=== PATIENT | male | born 1975 | race African-American/Black ===

== ENCOUNTER 2023-05-26 12:47 | Outpatient (OUT) | payer OTHER, SELFPAY ==
--- NOTE | 2023-05-26 12:49 | VEIN_ITS ---
Patient: CLIFF LEDBETTER Exam Date: 05/26/2023 : 1975 Gender:M Ordering : Non-Staff Physician Admission #: [id number] Family : Order #: [id number] CLICK HERE TO VIEW EXAM RADIOLOGY REPORT PROCEDURE: FACILITY [facility] - OFFICE VISIT INITIAL COMPARISON: None. PROGRESS NOTES: [age] year old male who presents with a 3 year history of leg swelling, a dilated veins, muscle cramping, and recent bilateral wounds. The patient's leg symptoms are symmetric bilaterally. There has been a progression of symptoms over time. This increases with prolonged standing which patient does for his job. The patient describes an improvement with rest, compression stockings, and leg elevation. The patient denies any signs and symptoms to suggest arterial ischemia. The patient describes a family history varicose veins on maternal side. The patient has drinking and smoking history of occasional alcohol consumption and daily smoker. Patient has a past medical history significant for of heart disease, edema, diabetes mellitus type 2. The patient denies a history of deep venous thrombus or pulmonary embolus. See separate history and physical for medication list. No prior treatment for varicose or spider veins. Current use of compression stockings. After review of nurse notes, history and physical exam I discussed at length the pathophysiology of venous hypertension and possible treatments, therapies and strategies available. We discussed at length the importance of elevating the lower extremities above the level of the heart, increased physical activity and compression stocking use. Ultrasound venous reflux study performed today was discussed at length with the patient. The report demonstrates abnormally dilated and incompetent right great saphenous, small saphenous, left proximal great saphenous, left anterior accessory saphenous veins, and calf private [employer] associate vein adjacent skin surface wound. Dilated branch saphenous varicosities bilaterally.. PHYSICAL EXAM: The right leg demonstrates a few varicosities, no appreciable spider veins, healed ulceration, moderate edema, no appreciable skin discoloration. The left leg demonstrates a few varicosities, no appreciable spider veins, healing ulceration, moderate edema, no appreciable skin discoloration. Both thighs, legs and feet were symmetrically warm to the touch. Good posterior tibial and dorsalis pedis pulses were present bilaterally. VEIN/VC Facility NEW Comprehensive IMPRESSION: 1. Bilateral lower extremity venous insufficiency 2. Bilateral lower extremity varicose veins 3. Moderate bilateral lower extremity subcutaneous edema 4. No flow significant arterial disease 5. CEAP: C5, EC, AP, LA PLAN: 1. Continued use of compression stockings 2. Elevated legs and increased physical activity symptomatic relief 3. Endovenous laser ablation of left anterior accessory saphenous vein, right great saphenous vein, left calf private equity associate vein, proximal left great saphenous vein. 4. Microfoam chemical ablation of branch saphenous varicosities if this will be approved by insurance. Nurse notes, history and physical were reviewed and confirmed, see attached forms. The nurse was present throughout the physical exam and consultation Dictated by: Reese Milian M.D. on 05/26/2023 at 14:02 Approved by: Reese Milian M.D. on 05/26/2023 at 14:39
--- NOTE | 2023-05-26 12:49 | VEIN_ITS ---
Patient: CLIFF LEDBETTER Exam Date: 05/26/2023 : 1975 Gender:M Ordering : Non-Staff Physician Admission #: [id number] Family : Order #: [id number] CLICK HERE TO VIEW EXAM RADIOLOGY REPORT PROCEDURE: VC EXT VENOUS REFLUX EDWINA LMTD COMPARISON: None. INDICATIONS: I83.813 Pain due to varicose veins of bilateral legs TECHNIQUE: Duplex imaging of the lower extremity to assess the deep and superficial venous system for the presence of deep or superficial venous incompetence and to document the location and severity of disease. The study includes evaluation of the great saphenous vein (GSV), anterior accessory saphenous vein (AASV) and small saphenous vein (SSV). Patient scanned in reverse Trendelenburg and standing. FINDINGS: RIGHT LOWER EXTREMITY: Saphenofemoral Junction Reflux: Yes 9.7mm 2.7 sec GSV: Diam (mm) Reflux/ Time (sec) Proximal Thigh 7.7 Yes 2.0 Mid Thigh 5.7 Yes 1.6 Distal Thigh 5.0 Yes 1.6 Prox Calf 4.9 Yes 0.8 Mid Calf 4.0 No Saphenopopliteal Junction Reflux: 5.6mm Yes 1.4 SSV: Proximal Calf 5.5 Yes 1.0 Mid Calf 3.7 Yes 0.9 AASV: Proximal Thigh 5.3 Yes 0.9 Mid Thigh Distal Thigh Thrombi: No acute or chronic thrombus visualized Compressibility: Normal Flow: Normal Preforator: Dist/med calf 3.7mm with 0s reflux. Dist/med calf 3.9mm with 0s reflux. Prox/med 3.7mm with 0.8s reflux. Tech Note: Incompetent SFJ, GSV, SPJ, and SSV. Patent varicose vein dist/med calf 2.4mm with 0.9s reflux. Patent varicose vein dist/med thigh 2.6mm with 0.9s reflux. LEFT LOWER EXTREMITY: Saphenofemoral Junction Reflux: Yes 11.3 mm 1.8 sec GSV: Diam (mm) Reflux/Time (sec) Proximal Thigh 6.8 Yes 1.1 Mid Thigh 5.4 Yes 0.9 Distal Thigh 4.4 No Prox Calf 3.8 No Mid Calf 3.9 No Saphenopopliteal Junction Relux: 2.7 mm No SSV: Proximal Calf 1.8 No Mid Calf 2.3 No AASV: Proximal Thigh 6.5 Yes 0.7 Mid Thigh 5.8 Yes 1.9 Distal Thigh Thrombi: No acute or chronic thrombus visualized Compressibility: Normal Flow: Normal Network Support: Dist/med calf near area of wound 5.2mm with 1.4s reflux. Mid/med calf 2.2mm with 0s reflux. Tech Note: Incompetent SFJ, GSV, and AASV. Patent varicose vein dist/med calf 2.5mm with 2.5s reflux. Patent varicose vein prox/med calf 3.1mm with 0.8s reflux. Patent varicose vein medial knee 4.0mm with 0s reflux. Patent varicose vein mid/med thigh 4.8mm with 2.2s reflux. CONCLUSION: 1. Incompetence in abnormally dilated right great saphenous, proximal left great saphenous, proximal right small saphenous, and left anterior accessory saphenous veins. 2. Network Support vein within distal medial left calf deep to skin surface wound. 3. Incompetent and dilated branch saphenous varicosities bilaterally. Dictated by: Reese Milian M.D. on 05/26/2023 at 13:56 Approved by: Reese Milian M.D. on 05/26/2023 at 14:01
== END 2023-05-26 12:48 | disposition home or self-care (01) ==
DX: R60.0 Localized edema (principal); I89.0 Lymphedema, not elsewhere classified
CPT/HCPCS: 93970; G0463